=== PATIENT | female | born 1945 | race Caucasian/White ===

== ENCOUNTER → 2017-04-20 | Outpatient (CLI) | payer MEDICARE, OTHER ==
[~2017-04-20] MED LIST: LEV125 PO; LEVOXYL PO; [UNRECOGNIZED DRUG - OTHER]
--- NOTE | 2017-04-20 08:55 | RADIOLOGY IMAGING REPORT ---
FACILITY: [facility] PATIENT NAME: KELLEY MORA : [id number] MR: [id number] V: [id number] EXAM DATE: ORDERING PHYSICIAN: DANTE COTTON TECHNOLOGIST: Cindy Judd PROCEDURE:BILATERAL DIGITAL SCREENING MAMMOGRAM WITH CAD ASSISTED INTERPRETATION & 3D TOMOSYNTHESIS COMPARISON:Prior mammograms 04/14/16, 04/14/15, 04/10/14, 04/12/13, 04/10/12, 04/08/11 INDICATIONS:screening FINDINGS: Mildly heterogeneous fibroglandular tissue is seen throughout the breasts. The parenchymal pattern has remained stable allowing for difference in mammographic technique & patient positioning. There is no evidence of malignant appearing mass, malignant appearing calcifications or other secondary sign of malignancy in either breast. DIAGNOSTIC CATEGORY 1--NEGATIVE. RECOMMENDATIONS: ROUTINE MAMMOGRAM AND CLINICAL EVALUATION. IMPRESSION: BIRADS 1: Negative No significant abnormality is seen Dictated by: Karen Hidalgo M.D. on 04/20/2017 at 8:46 Transcribed by: ASHU on 04/20/2017 at 8:51 Approved by: Karen Hidalgo M.D. on 04/20/2017 at 8:54 [facility]
--- NOTE | 2017-04-20 09:47 | RADIOLOGY IMAGING REPORT ---
FACILITY: [facility] PATIENT NAME: Elysia Christian : 1945 MR: [id number] V: [id number] EXAM DATE: ORDERING PHYSICIAN: DANTE COTTON TECHNOLOGIST: Location: [facility] Patient: Elysia Christian : 1945 Visit/Account:[id number] Date of Sevice: 04/20/2017 Exam type: VENOUS DOPP LOW RIGHT EXTREMIT History: Pain in right leg Comparison: None. Findings: The right lower extremity veins were imaged including the right common femoral vein, greater saphenou s vein, superficial femoral vein, popliteal vein, peroneal vein, posterior tibial vein and anterior t ibial veins revealing no evidence of intraluminal thrombi. The veins were compressible and demonstra tapan normal augmentation IMPRESSION: 1. No sonographic evidence DVT involving the right lower extremity veins Report Dictated By: Karen Hidalgo MD at 04/20/2017 9:42 AM Report E-Signed By: Karen Hidalgo MD at 04/20/2017 9:43 AM WSN:[email or web address]
== END ==
LOC: MAMO 01:13
PROVIDERS: ATTEND Family Medicine
DX: Z12.31 Encounter for screening mammogram for malignant neoplasm of breast (principal); M79.604 Pain in right leg
CPT/HCPCS: 77063; 77067

== ENCOUNTER → 2018-05-15 | Outpatient (CLI) | payer MEDICARE, OTHER ==
--- NOTE | 2018-05-16 08:23 | RADIOLOGY IMAGING REPORT ---
FACILITY: [facility] PATIENT NAME: KELLEY MORA : [id number] MR: [id number] V: [id number] EXAM DATE: ORDERING PHYSICIAN: DANTE COTTNO TECHNOLOGIST: Unique Guido PROCEDURE:BILATERAL DIGITAL SCREENING MAMMOGRAM WITH CAD ASSISTED INTERPRETATION & 3D TOMOSYNTHESIS COMPARISON:Prior mammograms 04/20/17, 04/14/16, 04/14/15, 04/10/14, 04/12/13, 04/10/12. INDICATIONS:screening FINDINGS: The breasts are heterogeneously dense which can obscure small masses. The parenchymal pattern has remained stable allowing for difference in mammographic technique & patient positioning. DIAGNOSTIC CATEGORY 1--NEGATIVE. RECOMMENDATIONS: ROUTINE MAMMOGRAM AND CLINICAL EVALUATION. IMPRESSION: BIRADS 1: Negative. No significant abnormality is seen. Dictated by: Karen Hidalgo M.D. on 05/15/2018 at 15:13 Transcribed by: ASHU on 05/15/2018 at 15:24 Approved by: Karen Hidalgo M.D. on 05/16/2018 at 8:22 [facility]
== END ==
LOC: MAMO 01:35
PROVIDERS: ATTEND Family Medicine
DX: Z12.31 Encounter for screening mammogram for malignant neoplasm of breast (principal)
CPT/HCPCS: 77063; 77067

== ENCOUNTER 2018-07-24 00:40 | Day surgery (SDC) | payer MEDICARE, OTHER ==
[~2018-07-24] VITALS: Ht 162.6 cm; Wt 83.9 kg
[~2018-07-24 00:40] MED LIST changes: +LEV112 PO
[2018-07-24] MEDS ORDERED: FAMOTIDINE 20 MG TAB PO ONE (08:00)
[2018-07-24] MEDS ORDERED: LEVOFLOXACIN/D5W 750 MG/150 ML 150 ML IVPB ONE (12:00)
[2018-07-24] MEDS ORDERED: metroNIDAZOLE* 500MG/100ML BAG 100 ML IVPB ONE (12:00)
[2018-07-24 13:00] VITALS: BP 130/72
[2018-07-24] MEDS ORDERED: MIDAZOLAM 2 MG/2 ML VIAL IVP PRN (13:35)
[2018-07-24] MEDS ORDERED: NORMOSOL R SOLN(*) 1000 ML BAG 1,000 ML IV PRN (13:35)
[2018-07-24] MEDS ORDERED: LIDOCAINE/SOD BICARB 8.4% SYR ID ONE (13:35)
[2018-07-24] MEDS ORDERED: LIDOCAINE 2% IV 100 MG/5ML SYR ONE (14:30)
[2018-07-24] MEDS ORDERED: fentaNYL CITR 250 MCG/5 ML AMP ONE (14:30)
[2018-07-24] MEDS ORDERED: PROPOFOL EMUL(*) 10MG/ML 20 ML 20 ML ONE (14:31)
[2018-07-24] MEDS ORDERED: HYDR-653 PO (15:36)
[2018-07-24] MEDS ORDERED: ONDA4TAB9 PO (15:37)
[2018-07-24] MEDS ORDERED: BUPIVACAINE/EPI 0.5% 50ML VIAL INFIL ONE (15:39)
[2018-07-24] MEDS ORDERED: DEXAMETHASONE SOD 4 MG/ML VIAL ONE (15:44)
[2018-07-24] MEDS ORDERED: ONDANSETRON 4 MG/2 ML VIAL ONE (15:44)
[2018-07-24] MEDS ORDERED: KETOROLAC 30 MG/ML VIAL ONE (16:05)
[2018-07-24] MEDS ORDERED: LIDOCAINE 2% 200MG/10ML UROJET ONE (16:29)
--- NOTE | 2018-07-24 16:45 | Short(Outpt) Discharge Summary ---
Discharge Summary Reason for Hosp/Final Diag: (1) Hemorrhoids Hospital Course & Plan: pt presented for hemorrhoidectomy. she tolerated the procedure well. she will be discharged home when criteria met. Departure Discharge to: Home Discharge Instructions Home Meds Active Scripts Ondansetron 4 Mg Odt (ONDANSETRON 4 MG ODT) 4 Mg Tab.rapdis, 4 MG PO Q8H for Nausea, #14 TAB Prov:VALERIE VILLALOBOS 07/24/18 Hydrocodone Bit/Acetaminophen (NORCO 5-325 TABLET) 1 Each Tablet, 1 EACH PO Q4H PRN for PAIN, #20 TAB Prov:VALERIE VILLALOBOS 07/24/18 Reported Medications Levothyroxine Sodium (LEVOTHYROXINE SODIUM) 0.112 Mg Tab, 0.112 MG PO QDAY, TAB 07/19/18 Discontinued Reported Medications [Levoxyl] No Conflict Check, PO DAILY 06/20/07 Diet: Regular Activity: As Tolerated Special Instructions: take stool softener while taking pain meds. sitz baths for 15 min 3x/day prn may be helpful. f/u dr. rico villalobos 2 wks ([phone]). VALERIE VILLALOBOS Jul 24, 2018 16:45
--- NOTE | 2018-07-24 16:49 | Post Operative Progress Note ---
Post Operative Progress Note Date: Jul 24, 2018 Time: 16:45 Surgeon: dr. rico villalobos #[id number] Core Java Software Engineer: none Anesthesia: gen, local dr. us Pre-Op Diagnosis: hemorrhoids Post-Op Diagnosis: same Findings: external hemorrhoids Procedure(s): eua hemorrhoidectomy Specimen Removed:(May be N/A): hemorrhoids Complications: none Estimated Blood Loss: minimal Date OP Note Dictated: Jul 24, 2018 Time OP Note Dictated: 16:46 VALERIE VILLALOBOS Jul 24, 2018 16:49
[2018-07-24] MEDS ORDERED: LIDO15SO2 TOP (16:56)
[2018-07-24 17:30] VITALS: BP 125/70
[2018-07-24 17:45] VITALS: BP 124/101
[2018-07-24 18:00] VITALS: BP 142/81
[2018-07-24] MEDS ORDERED: LIDOCAINE 2% JELLY 30 ML TUBE ONE (18:04)
[2018-07-24 18:05] VITALS: BP 142/71
[2018-07-24 18:08] VITALS: BP 139/88
--- NOTE | 2018-07-25 00:05 | OPERATIVE REPORT 1 ---
EVENT DATE: July 24, 2018 SURGEON: Joel cA MD ANESTHESIOLOGIST: Aaron Abbasi MD ANESTHESIA: General and local. ENTRY LEVEL PROGRAMMER: None. PREOPERATIVE DIAGNOSIS External hemorrhoids. POSTOPERATIVE DIAGNOSIS External hemorrhoids. PROCEDURE PERFORMED Examination under anesthesia and hemorrhoidectomy. FLUIDS IV crystalloid. ESTIMATED BLOOD LOSS Minimal. SPECIMENS Hemorrhoids from left lateral, right anterior, and right posterior positions. COMPLICATIONS None. INDICATIONS FOR PROCEDURE This is a 73-year-old female with external hemorrhoids that are bothersome to her. Risks and benefits of the procedure were explained and consent was signed. DESCRIPTION OF PROCEDURE Patient was taken to the operating room and placed in the supine position. General anesthesia was induced per anesthesia team. Patient was placed in stirrups and prepped and draped in normal sterile fashion. Exam under anesthesia was performed and revealed external hemorrhoids in the left lateral, right anterior, and right posterior positions. There were no significant internal hemorrhoids. All hemorrhoids were removed in the same fashion with incising the skin around the hemorrhoid. The hemorrhoid was then bluntly dissected off the internal sphincter muscle and excised with LigaSure. Hemostasis was assured. All incisions were closed with running 3-0 chromic stitches. Local analgesia was injected at the wound site as well as in the form of a block, and a lidocaine roll was placed in the anus. Appropriate dressings were applied. Patient tolerated the procedure well. There were no complications. MTDD
== END 2018-07-24 17:30 | disposition home or self-care (01) ==
LOC: OR 00:40
PROVIDERS: ATTEND Surgery
DX: K64.4 Residual hemorrhoidal skin tags (principal)
CPT/HCPCS: 46250; 88304; A9270; J1100; J1885; J1956; J2001; J2405; J2704; J3010; J3490